=== PATIENT | female | born 1980 | race African-American/Black ===

== ENCOUNTER 2017-05-16 22:55 | Emergency (ER) | payer MEDICAID ==
[~2017-05-16] VITALS: Ht 157.5 cm; Wt 56.8 kg
[~2017-05-16 22:55] MED LIST: LATU40TA PO; REME45TA PO; TYLE3 PO
[2017-05-17] MEDS ORDERED: ABAC1TAB3 PO
[2017-05-17] MEDS ORDERED: LURA1TAB2 PO
[2017-05-17] MEDS ORDERED: CHLO25TA2 PO
[2017-05-17] MEDS ORDERED: PANT40TA3 PO
[2017-05-17 00:13] VITALS: BP 149/68; PULSE 68; RESP 20; TEMP 98; O2SAT 99
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
== END 2017-05-16 23:00 | disposition left against medical advice (07) ==
LOC: NEPF 22:55
DX: Z04.41 Encounter for examination and observation following alleged adult rape (principal); Z21 Asymptomatic human immunodeficiency virus [HIV] infection status
CPT/HCPCS: 99281

== ENCOUNTER 2017-06-19 15:56 | Emergency (ER) | payer MEDICAID ==
[~2017-06-19] VITALS: Ht 157.5 cm; Wt 65.0 kg
[~2017-06-19 15:56] MED LIST changes: +ABAC1TAB3 PO; +CHLO25TA2 PO; -LATU40TA PO; +LURA1TAB2 PO; +PANT40TA3 PO; -REME45TA PO; -TYLE3 PO
[2017-06-19 16:00] VITALS: BP 106/61; PULSE 99; RESP 14; TEMP 98.5; O2SAT 99
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
== END 2017-06-19 17:04 | disposition left against medical advice (07) ==
LOC: NEPD 15:56
DX: S60.511A Abrasion of right hand, initial encounter (principal); X58.XXXA Exposure to other specified factors, initial encounter
CPT/HCPCS: 99281